=== PATIENT | male | born 1960 | race Caucasian/White ===

== ENCOUNTER → 2016-09-12 | Outpatient (REF) ==
[~2016-09-12] MED LIST: ARTHRITIS MED; PROTONIX40 MG PO
== END ==
LOC: WSOH 11:13
DX: Z01.89 Encounter for other specified special examinations (principal)

== ENCOUNTER 2018-03-08 11:47 | Observation (INO) | payer OTHER ==
[2018-03-08] VITALS (7 sets, daily range): BP systolic 148–174; BP diastolic 88–98; PULSE 61–63; TEMP 97.9–98.3
[~2018-03-08] VITALS: Ht 182.9 cm; Wt 95.3 kg
[2018-03-08] MEDS ORDERED: ZYLOPRIM 100MG100 MG PO (12:09)
[2018-03-08] MEDS ORDERED: LIPITOR20 MG PO (12:09)
[2018-03-08] MEDS ORDERED: ALTACE 10MG TAB10 MG PO (12:09)
[2018-03-08] MEDS ORDERED: CATAPRES0.2 MG PO (12:09)
[2018-03-08] MEDS ORDERED: ASPIRIN 32325 MG/TAB PO (12:16)
[2018-03-08] MEDS ORDERED: THE MEDICINE S200 M2 PO (12:16)
[2018-03-08] MEDS ORDERED: ONE DAILY1 TA1 PO (12:16)
[2018-03-08 12:30] LABS: BASO % 0.5 % (0.0-2.0); EOS # 0.1 (0.0-0.7); EOS % 1.6 % (0-4.0); GRAN % 68.8 % (42.2-75.2); HEMATOCRIT 44.2 % (42.0-52.0); HEMOGLOBIN 15.7 g/dl (13.5-18.0); LYMPH # 0.9 (1.2-3.4); LYMPH % 19.6 % (20.0-51.0); MEAN CELL VOLUME 88 fl (80.0-100.0); MEAN CORPUSCULAR HEMOGLOBIN 31 pg (27.0-31.0); MEAN CORPUSCULAR HGB CONC 36 g/dl (33.0-37.0); MEAN PLATELET VOLUME 10.5 fl (7.4-10.4); MONO # 0.4 (0.1-0.6); PLATELET COUNT 165 K/mm3 (130-400); RED BLOOD COUNT 5.04 M/mm3 (4.20-5.60); REDCELL DISTRIBUTION WIDTH-CV 12.7 % (11.5-14.5)
[2018-03-08 12:32] LABS: ALANINE AMINOTRANSFERASE 33 U/L (21-72); ALBUMIN 4.5 gm/dL (3.5-5.0); ALKALINE PHOSPHATASE 97 U/L (50-136); ANION GAP 10 mmol/L (7-16); AST,SGOT 41 U/L (15-37); BILIRUBIN,TOTAL 0.9 mg/dL (0.0-1.0); BLOOD UREA NITROGEN 20 mg/dL (9-20); CALCIUM 9.3 mg/dL (8.4-10.2); CARBON DIOXIDE 31 mmol/L (22-30); CHLORIDE 99 mmol/L (98-107); CREATININE, serum 0.94 mg/dL (0.66-1.25); GLUCOSE 99 mg/dL (74-106); LIPASE 42 U/L (23-300); POTASSIUM 4.4 mmol/L (3.4-5.0); SODIUM 140 mmol/L (137-145); TOTAL PROTEIN 7.7 gm/dL (6.4-8.2)
[2018-03-08 12:44] LABS: TROPONIN-I < 0.012 ng/mL (0.000-0.034)
[2018-03-08 13:07] LABS: COLLECTION METHOD CLEAN CATCH
[2018-03-08 13:15] LABS: PH 7 (5-8); SQUAMOUS EPITHELIAL None Seen /hpf; URINE APPEARANCE Clear; URINE BACTERIA None Seen /hpf; URINE BILIRUBIN Negative (NEGATIVE); URINE BLOOD Negative (NEGATIVE); URINE COLOR Colorless; URINE GLUCOSE Negative (NEGATIVE); URINE KETONE Negative (NEGATIVE); URINE LEUKOCYTE ESTERASE Negative (NEGATIVE); URINE NITRATE Negative (NEGATIVE); URINE PROTEIN(semi-quant) Negative (NEGATIVE); URINE RBC None Seen /hpf; URINE UROBILINOGEN Negative (NEGATIVE)
[2018-03-08] MEDS ORDERED: FLAXSEED OIL1000 MG PO (15:51)
[2018-03-08] MEDS ORDERED: ZANTAC 150150 MG PO (15:51)
[2018-03-09 00:30] VITALS: BP 131/81; PULSE 64
[2018-03-09 02:22] VITALS: BP 127/81; PULSE 59; TEMP 98.3
[2018-03-09 04:08] VITALS: BP 123/89; PULSE 62; TEMP 98.5
[2018-03-09 05:45] VITALS: BP 148/92; PULSE 68
[2018-03-09 08:17] VITALS: BP 152/102; PULSE 65; TEMP 98.4
[2018-03-09] MEDS ORDERED: NORVASC 5MG5 MG/TAB PO (08:41)
== END 2018-03-09 10:45 | disposition home or self-care (01) ==
LOC: COL.ER 11:47 → SURG 13:52
PROVIDERS: Emergency Medicine
DX: I10 Essential (primary) hypertension (principal); E78.5 Hyperlipidemia, unspecified; R51 Headache; K21.9 Gastro-esophageal reflux disease without esophagitis; Z79.82 Long term (current) use of aspirin; Z86.73 Personal history of transient ischemic attack (TIA), and cerebral infarction without residual deficits; Z87.891 Personal history of nicotine dependence; Z82.49 Family history of ischemic heart disease and other diseases of the circulatory system; Z82.3 Family history of stroke; Z83.3 Family history of diabetes mellitus; Z82.61 Family history of arthritis
CPT/HCPCS: G0378; J0780; J1885; J7030

== ENCOUNTER 2018-05-06 11:42 | Emergency (ER) | payer OTHER ==
[~2018-05-06] VITALS: Ht 182.9 cm; Wt 93.2 kg
[~2018-05-06 11:42] MED LIST changes: +ALTACE 10MG TAB10 MG PO; +ASPIRIN 32325 MG/TAB PO; +CATAPRES0.2 MG PO; +FLAXSEED OIL1000 MG PO; +LIPITOR20 MG PO; +NORVASC 5MG5 MG/TAB PO; +ONE DAILY1 TA1 PO; +THE MEDICINE S200 M2 PO; +ZANTAC 150150 MG PO; +ZYLOPRIM 100MG100 MG PO
[2018-05-06 11:50] VITALS: BP 132/81; TEMP 97.9
[2018-05-06 13:00] VITALS: PULSE 70
== END 2018-05-06 13:00 | disposition home or self-care (01) ==
LOC: COL.ER 11:42
DX: S51.011A Laceration without foreign body of right elbow, initial encounter (principal); M10.9 Gout, unspecified; I10 Essential (primary) hypertension; Z23 Encounter for immunization; W22.8XXA Striking against or struck by other objects, initial encounter; Y92.59 Other trade areas as the place of occurrence of the external cause

== ENCOUNTER → 2021-10-11 | Emergency (ER) | payer OTHER | LOC: COL.ER 17:22 | DX: R69 Illness, unspecified (principal) ==